=== PATIENT | male | born 1970 | race African-American/Black ===

== ENCOUNTER 2019-09-14 18:46 | Emergency (ER) | payer OTHER ==
[~2019-09-14] VITALS: Ht 185.4 cm; Wt 88.5 kg
[2019-09-14] MEDS ORDERED: MOBIC7.5 MG PO (19:40)
[2019-09-14 20:02] VITALS: BP 138/75
== END 2019-09-14 20:03 | disposition home or self-care (01) ==
LOC: ER 18:46
DX: S43.101A Unspecified dislocation of right acromioclavicular joint, initial encounter (principal); F17.210 Nicotine dependence, cigarettes, uncomplicated; X50.9XXA Other and unspecified overexertion or strenuous movements or postures, initial encounter; Y93.89 Activity, other specified; Y92.89 Other specified places as the place of occurrence of the external cause; Y99.0 Civilian activity done for income or pay

== ENCOUNTER 2020-07-21 15:37 | Inpatient (IN) | payer OTHER ==
[~2020-07-21] VITALS: Ht 185.4 cm; Wt 89.6 kg
[~2020-07-21 15:37] MED LIST: MOBIC7.5 MG PO
[2020-07-21 15:43] VITALS: BP 189/126
[2020-07-21 17:35] LABS: ABSOLUTE NEUTROPHILS 7.3 thou/uL (1.4-8.2); EOSINOPHILS 1.7 % (0.0-3.0); HEMATOCRIT 36.5 % (42.0-52.0); HEMOGLOBIN 12.7 gm/dL (14.0-18.0); LYMPHOCYTES 19.3 % (24.0-44.0); MCH 28.7 pg (26.0-34.0); MCHC 34.9 g/dL (28.0-37.0); MCV 82.3 fL (80.0-100.0); MONOCYTES 5.5 % (1.0-8.0); PLATELET COUNT 238 thou/uL (150-400); POLYS 72.5 % (36.0-66.0); RBC 4.43 mil/uL (4.50-6.00); RDW 14.9 % (10.5-14.5); WBC 10.1 thou/uL (4.0-11.0)
[2020-07-21 17:41] LABS: CALCIUM 8.8 mg/dL (8.5-10.1); POTASSIUM 3.2 mmol/L (3.5-5.1)
[2020-07-21 17:47] LABS: ALBUMIN 3.6 g/dL (3.4-5.0); TOTAL BILIRUBIN 0.3 mg/dL (0.2-1.0); TOTAL PROTEIN 7.4 g/dL (6.4-8.2)
[2020-07-21 18:57] LABS: URINE BILIRUBIN NEGATIVE (Negative); URINE BLOOD NEGATIVE (Negative); URINE CLARITY CLEAR; URINE COLOR YELLOW; URINE GLUCOSE-RANDOM* NEGATIVE (Negative); URINE KETONES NEGATIVE (Negative); URINE LEUKOCYTES-REFLEX NEGATIVE (Negative); URINE NITRITE-REFLEX NEGATIVE (Negative); URINE PROTEIN (DIPSTICK) 1+ (Negative); URINE SPECIFIC GRAVITY >= 1.030 (1.005-1.035); URINE UROBILINOGEN 0.2 E.U./dl (0.2-1.0)
[2020-07-21 19:09] LABS: BACTERIA-REFLEX 1-9 Few /HPF (None Seen); CASTS None Seen /LPF (None Seen); CRYSTALS None Seen /LPF (None Seen); SQUAMOUS 0-3 Few /LPF (0-3); URINE RBC None Seen /HPF (0-2); URINE WBC-REFLEX 0-5 Rare /HPF (0-5)
[2020-07-21 19:12] LABS: AMP/METHAMP POSITIVE (Negative); BARBITURATES Negative (Negative); BENZODIAZEPINES Negative (Negative); COCAINE Negative (Negative); METHADONE Negative (Negative); OPIATES POSITIVE (Negative); PCP Negative (Negative)
[2020-07-21 21:07] VITALS: BP 223/145
[2020-07-21 22:13] VITALS: BP 166/85
[2020-07-21 23:12] VITALS: BP 179/107
[2020-07-22 04:28] VITALS: BP 161/119
--- NOTE | 2020-07-22 05:27 | NUR ---
ALERT AND ORIENTED X 4, LUNGS CLEAR-ROOM AIR. ELEVATED BP, HYDRALAZINE GIVEN PER ORDERS, WILL MONITOR. C/O SIGNIFICANT RIGHT FOOT PAIN, PARTIAL RELIEF NOTED WITH IV FENTANYL. RIGHT FOOT PRESENTS WITH 2-3+ EDEMA, ERYTHEMA, AND PAINFUL WITH MOVEMENT AND TO TOUCH. OOB WITH SBA TO USE RESTROOM, CAN BE UNSTEADY ON FEET. FALL PRECAUTIONS IN PLACE, CALLS APPROPRIATELY FOR ANY NEEDED ASSISTANCE.
[2020-07-22 05:30] LABS: BASOPHILS 0.6 % (0.0-2.0); EOSINOPHILS 2.2 % (0.0-3.0); HEMATOCRIT 35.3 % (42.0-52.0); LYMPHOCYTES 15.2 % (24.0-44.0); MCH 28.5 pg (26.0-34.0); MCHC 34.1 g/dL (28.0-37.0); MCV 83.6 fL (80.0-100.0); MONOCYTES 5.5 % (1.0-8.0); PLATELET COUNT 226 thou/uL (150-400); POLYS 76.5 % (36.0-66.0); RBC 4.22 mil/uL (4.50-6.00); RDW 15.1 % (10.5-14.5); WBC 9.2 thou/uL (4.0-11.0)
[2020-07-22 06:08] LABS: CALCIUM 8.2 mg/dL (8.5-10.1); CREATININE 1.7 mg/dL (0.7-1.3); MAGNESIUM 2.1 mg/dL (1.8-2.4); POTASSIUM 3.3 mmol/L (3.5-5.1)
[2020-07-22 07:24] VITALS: BP 172/115
[2020-07-22 12:02] VITALS: BP 166/111
--- NOTE | 2020-07-22 13:58 | NUR ---
ASSUMED CARE AT 0700. PATIENT IS ALERT AND ORIENTED X4. PATIENT PISANO'S, LEAD RAMP AGENT ARE EQUAL. LUNGS ARE CLEAR. ABD IS SOFT WITH BSXR. PATIENT IS ON TELEMETRY IN NSR WITH HR OF 88. VOIDING NATA COLORED URINE PER URINAL. PATIENT HAS +2 EDEMA IN HIS RIGHT FOOT. IV INFUSING NS AT 80/HR. PATIENT CONTINUES ON IVBP ABTS. FALL AND SAFETY PROTOCOLS IN PLACE. C/O PAIN IN HIS RIGHT FOOT 6-7. MEDICATED WITH PRN PAIN MED PO. ENCOURAGED PATIENT TO ELEVATE HIS FOOT MUCH POSSIBLE. WILL CONTINUE TO MONITER.
[2020-07-22 15:00] VITALS: BP 179/79
[2020-07-22 20:10] VITALS: BP 144/88
--- NOTE | 2020-07-23 06:48 | NUR ---
Pt. rested quietly at intervals during the night when checked on during frequent rounds. He was given zofran times two during the shift for c/o nausea (see emar) with some relief noted. Po tylenol given for c/o a head- ache. Pt. did start to take his tele monitor off and became upset. Pt. did not want it on. This nurse educated him on the importance of it and he did agree for it to be reapplied.
[2020-07-23 07:58] VITALS: BP 188/114
[2020-07-23 09:16] LABS: ALBUMIN 3.2 g/dL (3.4-5.0); CALCIUM 8.6 mg/dL (8.5-10.1); CREATININE 1.5 mg/dL (0.7-1.3); PHOSPHORUS 2.7 mg/dL (2.5-4.9); POTASSIUM 3.1 mmol/L (3.5-5.1)
--- NOTE | 2020-07-23 09:58 | NUR ---
Patient complains of headache and generalized uncomfort, saying that he had never felt so bad, voicing that his situation was becoming worse and worse, asking the staff to discontinue the IV infusion, which was abx, the staff explained the importance to have abx, he said he did not want it. he claimed he would leave for home, the secratery and PCT claimed they had reported it to Kelton Miles, the doctor was on the way to see the patient. The patient refused the staff's offer of medication for his headache, only accepted Tylenol at the beginning. Awaiting the doctor.
--- NOTE | 2020-07-23 11:21 | NUR ---
Patient complains " can not breathe". O2 SAT is 100%, HR 76. given BP medciation and pain med, see the chart. will monitor the BP.
[2020-07-23 11:49] VITALS: BP 167/104
--- NOTE | 2020-07-23 12:10 | NUR ---
After Amlodipine 10 mg and oxycodone, patient's BP 167/104, OULSE [address] Kelton romero.
--- NOTE | 2020-07-23 12:24 | NUR ---
Dr. Melara is aware BP: 167/104. voicing that no need for Nicardipine, and agreed to give patient anxiety medication order.
--- NOTE | 2020-07-23 14:37 | NUR ---
Confirmed with Dr. Melara, no Nicardipine drip and no transfer to another floor.
--- NOTE | 2020-07-23 15:38 | NUR ---
Dr. Melara voiced she would put a diet order for this patient and patient could eat and drink.
--- NOTE | 2020-07-23 19:42 | NUR ---
PROVIDER WAS AWARE THAT PT'S REFUSAL OF TELE MONITORING. NO CHANGES IN MST ORDER AT THIS TIME. WILL ASK PT LATER IF PT CHANGES HIS MIND ABOUT TELEMETRY MONITORING.
[2020-07-23 19:47] VITALS: BP 167/95
--- NOTE | 2020-07-23 19:56 | NUR ---
Patient took the tele monitor off, Dr. Melara was in the room with the patient and talked to the patient. slept hours in bed, complains of headached before and after sleeping, claiming that the hospital was not giving right treatments to him. patient was educated to urinate in the urinal so the staff could collect urine specimen, patient preferred to go to the toilet.
[2020-07-23 20:11] VITALS: BP 167/95
--- NOTE | 2020-07-24 05:37 | NUR ---
ASSUMED PT CARE AROUND 1929. AXOX3. VERY FRUSTRATED AND UNCOOERATIVE. REFUSED TELEMETRY MONITORING AND REPORTED TO TWIN HERNANDEZ RACEBOOK WRITER. UPON RECEIVING A REPORT AT BEDSIDE, PT VERBALIZED THAT PT WATED TO LEAVE AMA. ASKED WHY PT DID NOT WANT TO STAY. PT SAID NOTHING THAT WE'RE DOING FOR PT IS HELPING HIM. PT SAID PT DID NOT FEEL GOOD, MED FOR NAUSEA AND ELEVATED BP GIVEN. PT ALSO COMPLAINED PAIN EVERYWHERE, ATTEMPTED TO ADMIN PAIN MED PER MD ORDER. PT PERSISTENTLY DECLINING THAT ANY PAIN MED IS TOO STRONG. TRIED TO ENGAGE IN CONVERSTATION TO SOLVE PROBLEM AND EASE PT'S FRUSTRATION. UNSUCCESSFUL. AROUND 2109, PT CALLED STAFF IN AND DEMANDED THAT PT LEAVE AMA. EXPLAINED TO PT R/B OF LEAVING AMA. PT WILLING TO SIGN AND LEAVE. AMA PAPER SIGNED AT BEDSIDE. REPORTED MADE TO OJ THOMPSON AND TWIN HERNANDEZ RACEBOOK WRITER FOR . LATER ALSO SPOKE TO ABOUT WHAT HAS HAPPENED. ALL BELONGINGS WERE SENT WITH PT AND PT WAS SAFETY ESCORTED OUT BY [facility] SPECIALIST. PT WAS PICKED UP BY HIS BROTHER. NO S/S ACUTE DISTRESS NOTED OR REPORTED UPON PT'S DEPARTURE FROM THIS FLOOR.
[2020-07-24 16:06] LABS: HIV ANTIBODY Non Reactive (Non Reactive)
[2020-07-25 00:06] LABS: HEPATITIS B SURFACE AG Negative (Negative); HEPATITIS C VIRUS AB <0.1 (0.0-0.9)
[2020-07-25 19:07] LABS: SYPHILIS AB Non Reactive (Non Reactive)
== END 2020-07-23 21:45 | disposition left against medical advice (07) | DRG 603 ==
LOC: ER 15:37 → EROBS 18:40 → 4W 22:52
PROVIDERS: Internal Medicine; Nurse Practitioner Family; Physician Assistant; Specialist; ADMIT Internal Medicine; ATTEND Internal Medicine
DX: L03.115 Cellulitis of right lower limb (principal); N17.9 Acute kidney failure, unspecified; I16.1 Hypertensive emergency; I10 Essential (primary) hypertension; F15.90 Other stimulant use, unspecified, uncomplicated; F12.90 Cannabis use, unspecified, uncomplicated; F17.210 Nicotine dependence, cigarettes, uncomplicated; E87.6 Hypokalemia; R79.89 Other specified abnormal findings of blood chemistry; Z79.899 Other long term (current) drug therapy
CPT/HCPCS: 10045

== ENCOUNTER 2020-09-08 21:50 | Inpatient (IN) | payer OTHER ==
[~2020-09-08] VITALS: Ht 185.4 cm; Wt 87.5 kg
[2020-09-08 22:07] VITALS: BP 202/135
[2020-09-08 23:17] LABS: ABSOLUTE NEUTROPHILS 4.2 thou/uL (1.4-8.2); BASOPHILS 0.9 % (0.0-2.0); EOSINOPHILS 3.7 % (0.0-3.0); HEMATOCRIT 38.6 % (42.0-52.0); HEMOGLOBIN 12.5 gm/dL (14.0-18.0); MCH 26.9 pg (26.0-34.0); MCHC 32.4 g/dL (28.0-37.0); MCV 83.1 fL (80.0-100.0); MONOCYTES 5.1 % (1.0-8.0); PLATELET COUNT 282 thou/uL (150-400); POLYS 63.3 % (36.0-66.0); RBC 4.64 mil/uL (4.50-6.00); RDW 15.4 % (10.5-14.5); WBC 6.7 thou/uL (4.0-11.0)
[2020-09-08 23:33] LABS: CALCIUM 9.1 mg/dL (8.5-10.1); POTASSIUM 3.1 mmol/L (3.5-5.1)
[2020-09-09] VITALS (8 sets, daily range): BP systolic 160–203; BP diastolic 102–131
--- NOTE | 2020-09-09 05:39 | NUR ---
ADMITTED FROM ER UNDER 'S CARE. ADMITTED R FOOT OM. AXOX4. TELE MONITORING INTIATED. ELEVATED BP TX PER MD ORDER. NO S/S ACUTE DISTRESS NOTED OR REPORTED AT THIS TIME. WILL CONT TO MONITOR FOR ANY CHANTES IN CONDIITION.
--- NOTE | 2020-09-09 19:20 | NUR ---
Assumed pt care this am, BP has been elevated, MD informed and new medications given. Bp is still at 160/113 endorsed to the night nurse. Pain is managed with medications, pain is noted on the right foot and a headache. Right foot is slightly swollen and warm to the touch. MRi of the foot to be done, form faxed. POC followed with no signs or verbalization of distress noted. Endorsed to the night nurse.
[2020-09-10 00:07] VITALS: BP 161/111
[2020-09-10 02:30] VITALS: BP 144/106
--- NOTE | 2020-09-10 05:08 | HC ---
[facility] [address] [place] [address] CONSULTATION Name: JULIANNA BAUTISTA Room #: 455-P ADM IN M.R.#: [id number] Admission: 09/09/20 Attend Phys: Yoni Armas MD Discharge: Date of : 68 Report #: [id number] THIS REPORT FOR: cc: NAVEEN - No family physician/PCP NAVEEN - No family physician/PCP Fede Toscano MD ~ CC: [facility] physician/PCP Yoni Armas DATE OF SERVICE: 09/09/2020 INFECTIOUS DISEASE CONSULTATION ATTENDING PHYSICIAN: Dr. Yoni Armas. REASON FOR EVALUATION: Right fifth toe, probable deep seated infection. HISTORY OF PRESENT ILLNESS: Chart reviewed, patient examined. This is a 50-year-old gentleman who was here previously in July, was concerned about the right fifth toe. There was felt to be infection. He, however, left AMA. He does have a history of polysubstance abuse as well as noncompliance. He was noted to be in some renal failure as well. Due to increasing pain over the last 24 hours prior to admission, he was reevaluated at his request in the Emergency Room. Inflammatory markers were mildly elevated, lactic acid 0.9. Plain film of the foot shows a callus formation surrounding the shaft of the fifth proximal phalanx, there is question of osteomyelitis. It is not clear that he has had significant fevers. He does have marked elevation of his blood pressure. Apparently, he has been noncompliant with antihypertensives as well. Currently complains of a headache and does have foot pain, especially with efforts to ambulate. Denies any significant pulmonary or gastrointestinal related complaints. ALLERGIES: None known. CURRENT MEDICATIONS: Include enoxaparin, vancomycin, nicotine patch, amlodipine, famotidine, fentanyl, metoprolol. PAST MEDICAL HISTORY: As described above, hypertension and polysubstance abuse including injection drug use. SOCIAL HISTORY: Does smoke cigarettes and a fairly regular ethanol use. FAMILY HISTORY: Noncontributory. REVIEW OF SYSTEMS: As above. [facility] [address] [place] [address] CONSULTATION Name: JULIANNA BAUTISTA Room #: 455-[facility] IN [facility].#: [id number] Admission: 09/09/20 Attend Phys: Yoni Armas MD Discharge: Date of : 68 Report #: [id number] PHYSICAL EXAMINATION: GENERAL: He is pleasant, alert and cooperative. He is in moderate distress secondary to the headache and the foot pain, appears reasonably well nourished, mildly diaphoretic. VITAL SIGNS: Temperature 97.8, pulse 74, respirations 18, blood pressure 185/131. SKIN: Warm, dry, no rashes. HEENT: Normocephalic. Extraocular muscles intact. NECK: Supple. LUNGS: Generally clear to auscultation bilaterally. HEART: Regular. I do not appreciate a murmur. ABDOMEN: Soft, nontender, nondistended. EXTREMITIES: Distal right lower extremity has moderate to marked inflammatory changes noted overlying the fifth toe, especially at the base. It is quite tender to palpation. There is no evidence of an ulcer or breach in the skin at this point. RECTAL: Deferred. LABORATORY DATA: White count of 6.7, H and H 12.5 and 38.6, platelets of 282. BMP: Sodium 143, potassium 3.1, chloride 104, bicarbonate is 30, anion gap of 9, BUN and creatinine 14 and 2.0, CRP of 20.8. Sed rate of 30. Lactic acid 0.9. Procalcitonin 0.63. MRI of the foot has been ordered. ASSESSMENT: Right fifth toe inflammatory process, difficult to ascertain. Ideally, MRI will help delineate direction to go. We will continue empiric antimicrobial therapy at this point. I think the picture is mixed. They will just be resolving trauma; however, in the event of findings consistent with osteomyelitis, I suspect he would need surgical intervention ____ including amputation of fifth toe. Thank you, we will follow. <ELECTRONICALLY SIGNED> By: Fede Toscano MD 09/10/20 [id number] Fede Toscano MD /nt
--- NOTE | 2020-09-10 05:50 | NUR ---
VSS-AFEBRILE. ROOM AIR. C/O RIGHT FOOT PAIN THAT IS WELL RELIEVED WITH IV PAIN MEDICATION. CALLS APPROPRIATELY FOR ANY NEEDED ASSISTANCE. BP REMAINS ELEVATED DESPITE IV AND PO ANTIHYPERTENSIVES. WILL CONTINUE TO MINITOR CLOSELY.
[2020-09-10 06:27] LABS: HEMATOCRIT 38.8 % (42.0-52.0); HEMOGLOBIN 12.6 gm/dL (14.0-18.0); MCHC 32.5 g/dL (28.0-37.0); MCV 83.2 fL (80.0-100.0); RBC 4.67 mil/uL (4.50-6.00); RDW 15.7 % (10.5-14.5)
[2020-09-10 06:54] LABS: CALCIUM 8.5 mg/dL (8.5-10.1); CREATININE 1.4 mg/dL (0.7-1.3); POTASSIUM 3.6 mmol/L (3.5-5.1)
[2020-09-10 07:47] VITALS: BP 171/112
--- NOTE | 2020-09-10 14:50 | NUR ---
Assumed pt care at 7am.Pt in and out of bed with sba.Assessment completed.vss but elevated bp noted.Am meds given and Dr Rosales rounded on pt .New order noted.Clonidine patch and norvasc given in addition to bp meds.Tylenol po given per pt request.Pt shaved and took shower this shift.Family in room visiting at present.No further c/o.Will continue to monitor.
[2020-09-10 16:00] VITALS: BP 163/93
[2020-09-10 20:10] VITALS: BP 168/110
--- NOTE | 2020-09-11 03:07 | NUR ---
ASSUMED PT CARE AROUND 1930. AXOX4. INDEPENDENT WITH ADLs. REFUSED BP MEDS AND NIGHT MEDS. ONGOING TELE MONITORING. NO S/S ACUTE DISTRESS NOTED OR REPORTED AT THIS TIME. WILL CONT TO MONITOR FOR ANY CHANGES IN CONDITION.
[2020-09-11 05:31] VITALS: BP 162/97
[2020-09-11 08:52] VITALS: BP 178/115
[2020-09-11 10:20] VITALS: BP 169/104
--- NOTE | 2020-09-11 14:09 | NUR ---
Assess due to pt with right toe osteomyelitis. Pt eaitng well >75% meals, voiced no nutrition concerns. Wt is stable. Low nutrition risk
[2020-09-11 15:17] VITALS: BP 159/98
--- NOTE | 2020-09-11 15:26 | NUR ---
Received awake on bed. Due medications given as prescribed, able to swallow meds w/o difficulty. On room air. Vital signs stable- with BP elevation noted; AM BP meds and PRN given as prescribed, rechecked BP from time to time. On telemetry; no complains of chest pain, crushing sensation and heaviness. On heart healthy diet- tolerating well; no nausea, no vomiting and no abdominal pain noted. Continent of bowel and bladder, able to use toilet independently. With NS at 100cc/hr, infusing well at R hand- intact and flushing well. Assisted in ADLs. Pt seen and examined by Dr Rosales- MRI ordered- pt brought down for MRI via wheelchair, tolerated procedure well; back to room safely. Visited by significant other today. Extremity kept elevated. Pt still with elevated BP, PRN medication given as prescribed, to recheck BP again. To continue monitoring patient.
[2020-09-11 20:25] VITALS: BP 183/104
[2020-09-12 00:42] VITALS: BP 198/130
[2020-09-12 01:05] VITALS: BP 155/105
--- NOTE | 2020-09-12 04:08 | NUR ---
ASSUMED PT CARE AROUND 1930. AXOX4. INDEPENDENT WITH ADLs. ELEVATED BP TX AND REPORTED TO BOTTLING ROOM WORKER SHUTDOWN PLANNER. MONITOR FOR NOW. COVID 19 PREOP SWAB COLLECTED PER 'S ORDER. NO S/S ACUTE DISTRESS NOTED OR REPORTED AT THIS TIME. WILL CONT TO MONITOR FOR ANY CHAGES IN CONDITION.
[2020-09-12 06:08] LABS: HEMATOCRIT 42.3 % (42.0-52.0); HEMOGLOBIN 13.7 gm/dL (14.0-18.0); MCH 26.9 pg (26.0-34.0); MCHC 32.5 g/dL (28.0-37.0); MCV 82.9 fL (80.0-100.0); RBC 5.11 mil/uL (4.50-6.00); RDW 15.3 % (10.5-14.5); WBC 6.1 thou/uL (4.0-11.0)
[2020-09-12 06:33] LABS: CALCIUM 8.8 mg/dL (8.5-10.1); CREATININE 1.6 mg/dL (0.7-1.3); POTASSIUM 3.1 mmol/L (3.5-5.1)
[2020-09-12 07:49] VITALS: BP 139/110
[2020-09-12 11:00] VITALS: BP 147/97
[2020-09-12 17:03] VITALS: BP 147/97
--- NOTE | 2020-09-12 17:08 | NUR ---
Case opened to follow for dc planning. Pt is a&ox4 and indicates that he was working and indep prior to admission. He lives with sibling in duplex and has transport at [place]. 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 He is open to f/u at [facility] and would appreciate 30 day supply of bld pressure meds and any other scripts at [facility]. He acknowledges iv drug use and is open to treatment resources. [facility] and Lynd[facility] Call noted in his dc instructions. Will follow to vouch meds at [facility]. [facility] has evaluated him and he [place].
[2020-09-12 19:31] VITALS: BP 159/105
--- NOTE | 2020-09-12 20:01 | NUR ---
Assumed pt care this am BP elevated, managed with medications. Pt mentioned that he had lost his job and would want to get this medical situation in control. On telemetry, would take the leads off on certain intervals refusing to use them making excuses, explained the resons why he is on telemetery pt agreed. Pain is managed with medications, pt is independent of all ADLS. POC followed, pt is aware of surgery tomorrow at 3 pm, Dr Higuera spoke to the pt. NPO midnight onwards. Endorsed to the night nurse.
[2020-09-13] VITALS (13 sets, daily range): BP systolic 146–204; BP diastolic 100–141
--- NOTE | 2020-09-13 12:20 | NUR ---
ASSUMED CARE AT APPROX. 0900 AFTER PATIENT AWOKE. ASSESSMENT CHARTED. PO MEDS HELD THIS AM FOR SURGERY. NICOTINE PATCH APPLIED; FLU SHOT ADMINISTERED PER PATIENT REQUEST. PATIENT IS A&OX4 AND GETS UP INDEPENDENTLY. SURGERY WAS ORDERED FOR 1500 AND MOVED UP TO 1130. PATIENT IS COMPLIANT. PATIENT SIGNED HIS CONSENT W NO QUESTIONS OR CONCERNS. BRUISING ON R FOOT; GREAT TOE. PATIENT LEFT UNIT AT APPROX. 1100. TICKET TO RIDE AND CONSENT WAS IN CHART. AWAITING RETURN FROM SURGERY
--- NOTE | 2020-09-13 15:44 | NUR ---
PATIENT ARRIVED FROM OR AT APPROXIMATELY 1400. BP ELEVATED; PATIENT HAS A HISTORY OF CHRONIC HTN. PATIENT C/O PAIN AT AN 8/10. SCD IN PLACE ON L LEG. PATIENT WAS EDUCATED ON HOW HE IS NOW A FALL RISK AND PATIENT IS COOPERATIVE. PATIENT HAS LR INFUSING ON R HAND @ 100MLS/HR. SCHEDULED HYDRALAZINE ADMINISTERED EARLY D/T HYPERTENSIVE STATE. PATIENT WILL BE TRANSFERRING TO /[facility]. WILL CONTIUNUE TO MONITOR
--- NOTE | 2020-09-13 17:10 | NUR ---
PATIENT TRANSFERRED TO [facility] AT APPROX 1700. MEDSURG/TELE ORDER DC'D PER PROVIDER ORDER; REPORT GIVEN TO JAYCE SOTOMAYOR.
--- NOTE | 2020-09-13 19:53 | NUR ---
THIS RN AMENDED NURSING ASSESSMENT DONE BY ASTER/GARDE MANGER, I AGREE WITH NURSING NOTE DONE BY ASTER/GARDE MANGER.
--- NOTE | 2020-09-13 21:09 | NUR ---
PT C/O UNCONTROLLED PAIN. MORPHINE IVP X 1 GIVEN. PT REPORTED PAIN IS BETTER. HE THEN MENTIONED THAT HE NEED TO SEE HIS GIRL FRIEND OR HE HAS TO LEAVE. I GAVE HIM A SANDWICH AND SOME WATER. I LET HIM KNOW TTHE VISITING HOURS REGULATIONS. R FOOTY WITH NEURO VASCULAR CHECK INTACT. ELEVATED ON PILLOW.CALL LIGHT WITHIN REACH.
[2020-09-14 06:12] VITALS: BP 155/94
[2020-09-14 06:25] LABS: ABSOLUTE NEUTROPHILS 9.9 thou/uL (1.4-8.2); BASOPHILS 0.4 % (0.0-2.0); EOSINOPHILS 0.3 % (0.0-3.0); HEMOGLOBIN 13.5 gm/dL (14.0-18.0); LYMPHOCYTES 10.1 % (24.0-44.0); MCH 27.1 pg (26.0-34.0); MCV 84.5 fL (80.0-100.0); PLATELET COUNT 247 thou/uL (150-400); POLYS 84.2 % (36.0-66.0); RBC 4.98 mil/uL (4.50-6.00); RDW 15.6 % (10.5-14.5); WBC 11.7 thou/uL (4.0-11.0)
[2020-09-14 11:08] VITALS: BP 148/84
--- NOTE | 2020-09-14 14:51 | NUR ---
I AGREE WITH NURSING ASSESSMENT AND NURSING NOTE DONE BY MARLON/ANALISA.
--- NOTE | 2020-09-14 15:08 | NUR ---
ON-GOING ASSESSMENT: CM REVIEWED CHART AND SPOKE WITH ATTENDING. PT REMAINS ON IV ANBX AND CULTURES ARE PENDING. AWAITING RECS FROM ID. PHYSICAL THERAPY SAW PATIENT AND RECOMMENDING CRUTCHES DUE TO 5TH RAY AMPUTATION. PT WAS DELIVERED CRUTCHES TO HIS ROOM AND CM APPROVED THIS THROUGH CM DIRECTOR. CM WILL CONTINUE TO FOLLOW TO ASSIST NEEDED AND WAIT ON FURTHER RECOMMENDATIONS FROM ID. PT WILL LIKELY NEED A 30 DAY SUPPLY OF MEDICATION AT DISCHARGE HE HAS NO INSURANCE AT THIS TIME AND PLAN IS TO FOLLOW UP AT [facility]. CM WILL CONTINUE TO FOLLOW TO ASSIST NEEDED.
--- NOTE | 2020-09-14 15:27 | NUR ---
PT CARE ASSUMED AT 0700. A&Ox4. PT PAIN IS STILL NOT TOLERATED WELL WITH PAIN MEDICATION ON BOARD. PT WOULD ALSO LIKE TO KNOW WHY HE CANNOT DISCHARGE YET. IV PATENT WITH NO REDNESS OR EDEMA, SALINE LOCKED BESIDES IV ANTIBIOTICS. R. FOOT ELEVATED. PT EXPLAINED THAT HE NEEDS TO WAIT FOR HIS CULTURES TO COME BACK TO HAVE HIS CORRECT MEDICATION PERSCRIBED TO BE ABLE TO GO HOME. FALL PROTOCOL IN PLACE. PT/ OT ON BOARD FOR POST SURGERY EVALUATION. CALL LIGHT IN REACH. WILL CONTINUE TO MONITOR.
[2020-09-14 19:45] VITALS: BP 137/93
--- NOTE | 2020-09-14 23:41 | NUR ---
ASSESSMENT COMPLETED. PT OBSERVED IN ROOM, IN BED. R FOOT ELEVATED, ICE FLY APPLIED. PO PAIN MEDS GIVEN WITH RELIEF.BP BETTER.
[2020-09-15 04:21] VITALS: BP 142/107
[2020-09-15 06:16] LABS: ALBUMIN 3.4 g/dL (3.4-5.0); CREATININE 1.5 mg/dL (0.7-1.3); PHOSPHORUS 3.9 mg/dL (2.5-4.9); POTASSIUM 3.4 mmol/L (3.5-5.1)
[2020-09-15 07:48] VITALS: BP 146/101
[2020-09-15 15:58] VITALS: BP 158/95
[2020-09-15] MEDS ORDERED: LINEZOLID600 MG PO (16:28)
--- NOTE | 2020-09-15 16:48 | NUR ---
ON-GOING ASSESSMENT: CM REVIEWED CHART AND SPOKE WITH ATTENDING. PLANS TO LIKELY DISCHARGE TODAY. CM RECEIVED FINAL RECS FOR ZYVOX FOR HOME LATE IN EVENING. PT NEEDING ZYVOX 600MG BID. CM CONTACTED OUTPATIENT PHARMACY AND NOTIFIED HER SCRIPT FOR ZYVOX WOULD BE FAXED TO THEM AT [phone] AND CM WILL VOUCHER MEDICATION. OSCAR NOTIFIED DR. MADISON TO NOTIFY BEDSIDE RN OF ANY OTHER MEDICATIONS THAT NEED TO BE VOUCHERED OUTPT PHARMACY CLOSES AT 6PM. CM ALSO PROVIDED BEDSIDE RN WITH A VOUCHER MEDICATION FORM IF ANY OTHER MEDS NEED TO BE COVERED AND THAT PATIENT CAN GO TO OTHER PHARMACIES LISTED IF NEEDED AND SHE WOULD HAVE TO CALL IN MEDS OR SEND HIM WITH THE HARD SCRIPT. PT ALSO HAS OUTPT FOLLOW UP CONTACT INFORMATION FOR [facility] DUE TO NO INSURANCE.
[2020-09-15] MEDS ORDERED: CLONIDINE1 EAC1 TRANSDERM (16:52)
[2020-09-15] MEDS ORDERED: METOPROLOL SUCC50 MG PO (16:52)
[2020-09-15] MEDS ORDERED: AMLODIPINE BESY10 MG PO (16:52)
[2020-09-15] MEDS ORDERED: HYDRALAZINE 5050 MG PO (16:52)
[2020-09-15 17:00] VITALS: BP 147/97
[2020-09-15 18:12] VITALS: BP 147/97
--- NOTE | 2020-09-15 18:14 | NUR ---
DISCHARGE PAPERS REVIEWED WITH PATIENT SIGNED AND COPY IN CHART. ALL BELONGINGS PACKED AND SENT WITH PATIENT. IV ACSESS DCD, RX'S FILLED AT OUTPATIENT PHARMACY. PATIENT WAS GIVEN VOUCHER. NO COST TO PATIENT. WOUND CARE SUPPLIES SENT WITH PATIENT. PT ALERT XS 4 NO PAIN OR RESP DISTRESS AT DISCHARGE, TAKEN VIA W/C TO FRIENDS CAR FOR DISCHARGE.
== END 2020-09-15 18:23 | disposition home or self-care (01) | DRG 504 ==
LOC: ER 21:50 → 4W 09-09 01:20 → EROBS 09-09 01:20 → 4W 09-09 03:39 → 4S 09-13 17:03
PROVIDERS: Nurse Practitioner Family; Orthopaedic Surgery Sports Medicine; Specialist; Student in an Organized Health Care Education/Training Program; ADMIT Internal Medicine; ATTEND Internal Medicine
PROC: 0Y6X0Z0 Detachment at Right 5th Toe, Complete, Open Approach (ICD-10-PCS; principal; 2020-09-13)
DX: M86.8X7 Other osteomyelitis, ankle and foot (principal); N17.9 Acute kidney failure, unspecified; M00.9 Pyogenic arthritis, unspecified; I10 Essential (primary) hypertension; E87.6 Hypokalemia; F17.210 Nicotine dependence, cigarettes, uncomplicated; N18.9 Chronic kidney disease, unspecified; Z20.828 Contact with and (suspected) exposure to other viral communicable diseases; Z91.14 Patient's other noncompliance with medication regimen; Z23 Encounter for immunization; Z79.899 Other long term (current) drug therapy
CPT/HCPCS: 10045; 10102; 50010; 50101; 50386; 50951; 56525; 56527; 57091; 62110; 62900; 70005

== ENCOUNTER 2020-10-26 03:08 | Emergency (ER) | payer OTHER ==
[~2020-10-26] VITALS: Ht 185.4 cm; Wt 93.0 kg
[~2020-10-26 03:08] MED LIST changes: +AMLODIPINE BESY10 MG PO; +CLONIDINE1 EAC1 TRANSDERM; +HYDRALAZINE 5050 MG PO; +LINEZOLID600 MG PO; +METOPROLOL SUCC50 MG PO
[2020-10-26 03:09] VITALS: BP 157/101
[2020-10-26 04:14] LABS: ABSOLUTE NEUTROPHILS 3.4 thou/uL (1.4-8.2); BASOPHILS 1.2 % (0.0-2.0); EOSINOPHILS 2.7 % (0.0-3.0); HEMATOCRIT 38.6 % (42.0-52.0); HEMOGLOBIN 12.5 gm/dL (14.0-18.0); LYMPHOCYTES 22.8 % (24.0-44.0); MCH 26.7 pg (26.0-34.0); MCHC 32.4 g/dL (28.0-37.0); MCV 82.5 fL (80.0-100.0); MONOCYTES 8.4 % (1.0-8.0); PLATELET COUNT 235 thou/uL (150-400); POLYS 64.9 % (36.0-66.0); RBC 4.67 mil/uL (4.50-6.00); WBC 5.2 thou/uL (4.0-11.0)
[2020-10-26 04:20] LABS: CALCIUM 9.2 mg/dL (8.5-10.1); CREATININE 2.1 mg/dL (0.7-1.3); POTASSIUM 3.2 mmol/L (3.5-5.1)
[2020-10-26 04:26] LABS: TOTAL BILIRUBIN 0.3 mg/dL (0.2-1.0); TOTAL PROTEIN 7.8 g/dL (6.4-8.2)
[2020-10-26 07:08] LABS: URINE COLOR YELLOW
[2020-10-26 07:09] LABS: URINE BILIRUBIN NEGATIVE (Negative); URINE BLOOD NEGATIVE (Negative); URINE CLARITY CLEAR; URINE GLUCOSE-RANDOM* NEGATIVE (Negative); URINE KETONES NEGATIVE (Negative); URINE LEUKOCYTES-REFLEX NEGATIVE (Negative); URINE NITRITE-REFLEX NEGATIVE (Negative); URINE PROTEIN (DIPSTICK) TRACE (Negative); URINE UROBILINOGEN 0.2 E.U./dl (0.2-1.0)
[2020-10-26 07:12] LABS: AMP/METHAMP POSITIVE (Negative); BARBITURATES Negative (Negative); BENZODIAZEPINES Negative (Negative); COCAINE Negative (Negative); METHADONE Negative (Negative); OPIATES Negative (Negative); PCP Negative (Negative)
[2020-10-26 16:06] VITALS: BP 136/102
[2020-10-27 07:28] LABS: HEMATOCRIT 39.7 % (42.0-52.0); HEMOGLOBIN 13.1 gm/dL (14.0-18.0); MCH 26.9 pg (26.0-34.0); MCHC 32.9 g/dL (28.0-37.0); MCV 81.9 fL (80.0-100.0); RBC 4.84 mil/uL (4.50-6.00); RDW 17.2 % (10.5-14.5); WBC 5.7 thou/uL (4.0-11.0)
[2020-10-27 07:36] LABS: CALCIUM 8.8 mg/dL (8.5-10.1); CREATININE 1.7 mg/dL (0.7-1.3); POTASSIUM 3.8 mmol/L (3.5-5.1)
[2020-10-27 10:16] VITALS: BP 164/78
--- NOTE | 2020-10-27 11:11 | NUR ---
DR. PEREZ NOTIFIED OF PT LEAVING AMA.
== END 2020-10-27 11:07 | disposition left against medical advice (07) ==
LOC: ER 03:08 → EROBS 05:35 → ER 10-27 11:07
PROVIDERS: Emergency Medicine; Hospitalist
DX: L03.115 Cellulitis of right lower limb (principal); U07.1 COVID-19; E87.6 Hypokalemia; N17.9 Acute kidney failure, unspecified; F15.10 Other stimulant abuse, uncomplicated; I12.9 Hypertensive chronic kidney disease with stage 1 through stage 4 chronic kidney disease, or unspecified chronic kidney disease; N18.9 Chronic kidney disease, unspecified; F17.210 Nicotine dependence, cigarettes, uncomplicated; Z89.421 Acquired absence of other right toe(s); Z79.899 Other long term (current) drug therapy; Z98.890 Other specified postprocedural states; Z91.14 Patient's other noncompliance with medication regimen